=== PATIENT | male | born 1970 | race Two or more races ===

== ENCOUNTER 2018-03-19 16:18 | Emergency (ER) | payer MEDICAID ==
[~2018-03-19] VITALS: Ht 162.6 cm; Wt 88.5 kg
[~2018-03-19 16:18] MED LIST: FENO160T8; METO25TA62; SIMV-8
[2018-03-19] MEDS ORDERED: KETOROLAC TROMETH 30 MG/ML 1ML VIAL IV ONE (16:45)
[2018-03-19 17:04] LABS: Basophils # (auto) 0.1 uL; Basophils % (auto) 0.6 % (0.0-2.0); Eosinophils # (auto) 0.1 uL; Eosinophils % (auto) 0.6 % (0.0-7.0); Hematocrit 46.5 % (41.0-53.0); Hemoglobin 16.1 g/dL (13.5-17.5); Lymphocytes # (auto) 2.8 uL; Lymphocytes % (auto) 30.3 % (10.0-50.0); Mean Corpuscular Hemoglobin 30.5 pg (28.0-32.0); Mean Corpuscular Hgb Conc. 34.6 g/dL (32.0-36.0); Mean Corpuscular Volume 88.1 fL (80.0-100.0); Monocytes # (auto) 0.9 uL; Monocytes % (auto) 9.3 % (0.0-12.0); Neutrophils # (auto) 5.5 uL; Neutrophils % (auto) 59.2 % (37.0-80.0); Nucleated Red Blood Cells % 0.4 %; Platelet Count (auto) 225 10^3/uL (140-450); Red Blood Cells 5.28 10^6/uL (4.5-5.90); Red Cell Distribution Width 13.3 % (11.8-14.3); White Blood Cell 9.3 10^3/uL (4.4-10.8)
[2018-03-19 17:21] LABS: Albumin 4.1 g/dL (3.4-5.0); Calcium 9.2 mg/dL (8.5-10.1); Potassium 3.2 mmol/L (3.5-5.1)
[2018-03-19 17:24] LABS: BUN/Creatinine Ratio 13.3; Bilirubin, Total 0.7 mg/dL (0.2-1.0); Total Protein 8.1 g/dL (6.4-8.2)
[2018-03-19 17:56] LABS: Urine Bacteria NONE SEEN /hpf (None Seen); Urine Blood Negative /uL (Negative); Urine Specific Gravity 1.004 (1.001-1.035); Urine WBC <1 /hpf (0 - 3)
[2018-03-19] MEDS ORDERED: POTASSIUM CHL 20 Meq TABLET PO ONE (19:00)
[2018-03-19 21:05] VITALS: BP 134/74
== END 2018-03-19 21:16 | disposition home or self-care (01) ==
LOC: ER 16:18
DX: M54.5 Low back pain (principal); E87.6 Hypokalemia; I10 Essential (primary) hypertension; E78.5 Hyperlipidemia, unspecified; Z87.442 Personal history of urinary calculi
CPT/HCPCS: 36415; 71045; 72100; 74176; 80053; 81001; 85025; 94761; 96374; 99285; J1885

== ENCOUNTER 2023-10-05 17:17 | Inpatient (IN) | payer MEDICAID ==
[~2023-10-05] VITALS: Ht 167.6 cm; Wt 86.4 kg
[~2023-10-05 17:17] MED LIST changes: +AMLO1TAB22 PO; +ATOR20TA50 PO; -FENO160T8; +GLYB5TAB8 PO; +LISI10TA34 PO; +METF-490 PO; -METO25TA62; -SIMV-8; +VALS40TA2 PO
[2023-10-05 18:21] LABS: Urine Bacteria None Seen /hpf (None Seen)
[2023-10-05 18:37] LABS: Urine Blood Negative /uL (Negative); Urine Clarity Clear (Clear); Urine Color Light-Yellow (Yellow); Urine Mucus FEW (None Seen); Urine Protein, UAD Negative (Negative); Urine Specific Gravity 1.014 (1.001-1.035); Urine Urobilinogen Normal (Negative); Urine WBC 1 /hpf (0 - 3); Urine pH 5.5 (5.0-9.0)
[2023-10-05 18:48] LABS: Amphetamine Screen, Urine Neg (NEGATIVE)
[2023-10-05 18:49] LABS: Barbiturate Scree,Urine Neg (NEGATIVE); Benzodiazephine Screen, Urine Neg (NEGATIVE); Cannabinoid Screen, Urine Neg (NEGATIVE); Cocaine Screen, Urine Neg (NEGATIVE); Opiate Scree,Urine Neg (NEGATIVE); Phencyclidine Screen, Urine Neg (NEGATIVE)
[2023-10-05 18:54] LABS: Basophils # (auto) 0.1 10 ^3/uL (0-0.2); Basophils % (auto) 0.7 % (0.0-2.0); Eosinophils # (auto) 0.1 10 ^3/uL (0-0.8); Eosinophils % (auto) 1.6 % (0.0-7.0); Hematocrit 44.5 % (41.0-53.0); Hemoglobin 15.6 g/dL (13.5-17.5); Lymphocytes # (auto) 2.2 10 ^3/uL (0.4-5.4); Lymphocytes % (auto) 25.5 % (10.0-50.0); Mean Corpuscular Hemoglobin 30.9 pg (28.0-32.0); Mean Corpuscular Volume 88.2 fL (80.0-100.0); Monocytes # (auto) 0.7 10 ^3/uL (0-1.3); Monocytes % (auto) 7.6 % (0.0-12.0); Neutrophils # (auto) 5.6 10 ^3/uL (1.6-8.6); Neutrophils % (auto) 64.6 % (37.0-80.0); Nucleated Red Blood Cells % 0.1 %; Red Blood Cells 5.05 10^6/uL (4.5-5.90); Red Cell Distribution Width 13.4 % (11.8-14.3); White Blood Cell 8.6 10^3/uL (4.4-10.8)
[2023-10-05 19:08] LABS: Alanine Aminotransferase 21 U/L (7-40); Albumin 4.5 g/dL (3.2-4.8); Alkaline Phosphatase 76 U/L (46-116); Anion Gap 7 (5-15); Aspartate Aminotransferase 12 U/L (13-40); BUN/Creatinine Ratio 9.7 (10.0-20.0); Bilirubin, Total 0.7 mg/dL (0.2-1.0); Blood Urea Nitrogen 10 mg/dL (9-23); Calcium 9.7 mg/dL (8.7-10.4); Carbon Dioxide 24 mmol/L (20-30); Chloride 106 mmol/L (98-107); Glucose 210 mg/dL (74-106); Lipase 46 U/L (12-53); Potassium 3.6 mmol/L (3.5-5.1); Sodium 137 mmol/L (136-145); Total Protein 7.4 g/dL (5.7-8.2)
[2023-10-05] MEDS ORDERED: TAMS-35 PO (19:25)
[2023-10-05] MEDS ORDERED: ZOFR4T PO (19:25)
[2023-10-05] MEDS ORDERED: IBUP-1454 PO (19:25)
[2023-10-05 19:27] LABS: INR 1.01 (0.9-1.15); Partial Thromboplastin Time 26.1 SEC (24.5-34.5); Prothrombin Time 10.7 sec (9.3-11.8)
[2023-10-05] MEDS ORDERED: ONDANSETRON HCL 4 MG/2 ML VIAL IV PRN (21:15)
[2023-10-05] MEDS ORDERED: ACETAMINOPHEN 325 MG TAB PO PRN (21:15)
[2023-10-05] MEDS ORDERED: DEXTROSE (50%) 50ML SYRG IV PRN (21:15)
[2023-10-05] MEDS ORDERED: DOCUSATE SOD 100 MG CAP PO PRN (21:15)
[2023-10-05] MEDS ORDERED: hydrALAZINE HCL 20 MG/ML VL IV PRN (21:15)
[2023-10-05] MEDS ORDERED: NITROGLYCERIN 0.4 MG SL TAB SL PRN (23:45)
[2023-10-05] MEDS ORDERED: MORPHINE SULFATE INJ 2 MG/ml SYRG IV PRN (23:45)
[2023-10-06] VITALS (8 sets, daily range): BP systolic 133–140; BP diastolic 77–80; PULSE 57–64; RESP 12–19; TEMP 98.7–98.9; O2SAT 95–97
[2023-10-06] MEDS: InsuLIN REG 1unit/0.01ml Soln (100units/ml) SC SCH (01:15)
[2023-10-06] MEDS: ACCU-CHEK COMFORT CURVE STRIP VI SCH (01:16)
[2023-10-06] MEDS: MORPHINE SULFATE 4 MG/ML SYR/VIAL IV ONE (01:33)
[2023-10-06] MEDS: SODIUM CHLORIDE 0.9% 1,000 ML IVB ONE (01:34)
[2023-10-06] MEDS: ASPirin 325 MG TAB PO ONE (01:34)
[2023-10-06] MEDS: METOCLOPRAMIDE HCL 5MG/ml INJ 2ml VIAL IV ONE (01:34)
[2023-10-06] MEDS: ATORVASTATIN 20 MG TAB PO SCH (01:34)
[2023-10-06] MEDS: SODIUM CHLORIDE 0.9% 1,000 ML IV SCH (02:48)
[2023-10-06 06:09] LABS: Basophils # (auto) 0 10 ^3/uL (0-0.2); Basophils % (auto) 0.5 % (0.0-2.0); Eosinophils # (auto) 0.1 10 ^3/uL (0-0.8); Eosinophils % (auto) 1.3 % (0.0-7.0); Hematocrit 39.2 % (41.0-53.0); Lymphocytes # (auto) 2.3 10 ^3/uL (0.4-5.4); Lymphocytes % (auto) 27.8 % (10.0-50.0); Mean Corpuscular Hemoglobin 31.3 pg (28.0-32.0); Mean Corpuscular Hgb Conc. 35.6 g/dL (32.0-36.0); Monocytes # (auto) 0.7 10 ^3/uL (0-1.3); Monocytes % (auto) 8.3 % (0.0-12.0); Neutrophils # (auto) 5.1 10 ^3/uL (1.6-8.6); Neutrophils % (auto) 62.1 % (37.0-80.0); Nucleated Red Blood Cells % 0.1 %; Red Blood Cells 4.46 10^6/uL (4.5-5.90); Red Cell Distribution Width 13.5 % (11.8-14.3); White Blood Cell 8.3 10^3/uL (4.4-10.8)
[2023-10-06 06:18] LABS: Alanine Aminotransferase 17 U/L (7-40); Albumin 3.9 g/dL (3.2-4.8); Alkaline Phosphatase 60 U/L (46-116); Anion Gap 4 (5-15); Aspartate Aminotransferase 8 U/L (13-40); BUN/Creatinine Ratio 10.3 (10.0-20.0); Bilirubin, Total 0.6 mg/dL (0.2-1.0); Blood Urea Nitrogen 9 mg/dL (9-23); Carbon Dioxide 25 mmol/L (20-30); Chloride 110 mmol/L (98-107); Glucose 143 mg/dL (74-106); Potassium 3.4 mmol/L (3.5-5.1); Sodium 139 mmol/L (136-145)
[2023-10-06 06:19] LABS: Total Protein 6.2 g/dL (5.7-8.2)
[2023-10-06 11:19] LABS: Magnesium 1.9 mg/dL (1.6-2.6)
[2023-10-06] MEDS: amLODIPine BESYLATE 5 MG TAB PO SCH (11:22)
[2023-10-06] MEDS: ASPirin 81 mg TAB PO SCH (11:22)
[2023-10-06] MEDS: POTASSIUM EFFERVESENT TAB 25 MEQ GT ONE (12:26)
[2023-10-06 14:08] LABS: Rapid Influenza A Negative (Negative); Rapid Influenza B Negative (Negative)
[2023-10-06 14:09] LABS: COVID19 ANTIGEN SOFIA FIA NEGATIVE (NEGATIVE)
[2023-10-06] MEDS: TAMSULOSIN HYDROCHLORIDE 0.4 MG CAP PO SCH (18:13)
[2023-10-06] MEDS: MORPHINE SULFATE INJ 2 MG/ml SYRG IV PRN (18:17)
[2023-10-07] VITALS (9 sets, daily range): BP systolic 103–153; BP diastolic 59–91; PULSE 54–74; RESP 15–18; TEMP 98.3–99; O2SAT 96–98
[2023-10-07] MEDS: HYDROcodone-ACET 5/325MG TAB PO PRN (18:42)
[2023-10-08] VITALS (8 sets, daily range): BP systolic 113–152; BP diastolic 62–88; PULSE 50–72; RESP 16–20; TEMP 97.6–98.7; O2SAT 95–97
[2023-10-08] MEDS ORDERED: CYCLOBENZAPRINE HCL 10 MG TAB PO PRN (14:45)
[2023-10-08] MEDS: ACCU-CHEK COMFORT CURVE STRIP VI SCH (17:12)
[2023-10-08] MEDS: InsuLIN REG 1unit/0.01ml Soln (100units/ml) SC SCH (17:12)
[2023-10-08] MEDS: CYCLOBENZAPRINE HCL 10 MG TAB PO PRN (21:22)
[2023-10-09] VITALS (8 sets, daily range): BP systolic 110–155; BP diastolic 59–89; PULSE 60–86; RESP 16–20; TEMP 98–98.5; O2SAT 94–100
[2023-10-09] MEDS: ADENOSINE 72 MG in GIVE UN-DILUTED 0 ML IV ONE (11:23)
[2023-10-10] VITALS (7 sets, daily range): BP systolic 117–141; BP diastolic 63–87; PULSE 53–71; RESP 17–18; TEMP 97.3–98.4; O2SAT 93–95
== END 2023-10-10 17:00 | disposition home or self-care (01) | DRG 351 ==
LOC: ER 17:17 → TELE 23:42 → TELE-WESTW 10-06 17:53
PROVIDERS: ADMIT Nurse Practitioner Family; ATTEND Internal Medicine Geriatric Medicine
DX: M62.838 Other muscle spasm (principal); I21.A1 Myocardial infarction type 2; N20.0 Calculus of kidney; E11.65 Type 2 diabetes mellitus with hyperglycemia; B34.9 Viral infection, unspecified; I10 Essential (primary) hypertension; E87.6 Hypokalemia; E78.5 Hyperlipidemia, unspecified; E66.9 Obesity, unspecified; N40.0 Benign prostatic hyperplasia without lower urinary tract symptoms; Z20.822 Contact with and (suspected) exposure to COVID-19; Z53.20 Procedure and treatment not carried out because of patient's decision for unspecified reasons; Z87.442 Personal history of urinary calculi; Z79.4 Long term (current) use of insulin; Z83.3 Family history of diabetes mellitus; Z82.49 Family history of ischemic heart disease and other diseases of the circulatory system; Z68.30 Body mass index [BMI] 30.0-30.9, adult
CPT/HCPCS: 36415; 71250; 74176; 80053; 80061; 80307; 81001; 82962; 83036; 83605; 83690; 83735; 84443; 84484; 85025; 85610; 85730; 87040; 87426; 87804; 93005; 93017; 93306; G0378; J0153; J1815